=== PATIENT | female | born 1965 | race Caucasian/White ===

== ENCOUNTER 2016-09-05 17:46 | Observation (INO) | payer BC ==
[~2016-09-05] VITALS: Ht 170.2 cm; Wt 88.9 kg
[~2016-09-05 17:46] MED LIST: ADVIN25050 INH; CMD5 PO; ENOXAPARIN 40 MG/0.4 ML SYR SC SCH; FRC PO
[2016-09-05] MEDS ORDERED: ASPIRIN 324 MG CHEW PO STA (19:09)
[2016-09-05 19:25] LABS: BASO % 0.2 %; BASO ABS # 0.01 K/uL (0-0.2); COMPLETE YES; LYMPH % 34.4 %; LYMPH ABS # 2.17 K/uL (1.2-3.4); MEAN CELL VOLUME 84.8 fL (80-100); MEAN CORPUSCULAR HGB CONC 35.4 g/dl (32-36); MEAN PLATELET VOLUME 10.6 fL (7.4-10.4); MONO % 5.9 %; NEUT % 58.5 %; PLATELET COUNT 204 K/uL (130-400); WHITE BLOOD COUNT 6.31 K/uL (4.8-10.8)
[2016-09-05 19:37] LABS: BLOOD UREA NITROGEN 11 mg/dl (7-18); BUN/CREATININE RATIO 12.2 (10-20); CARBON DIOXIDE 29 mmol/L (21-32); CHLORIDE 105 mmol/L (98-107); CREATININE 0.86 mg/dl (0.60-1.20); GLUCOSE 95 mg/dl (70-99); POTASSIUM 3.7 mmol/L (3.5-5.1); SODIUM 140 mmol/L (136-145)
--- NOTE | 2016-09-05 19:40 | DIAGNOSTIC IMAGING REPORT ---
CHEST ONE VIEW PORTABLE CLINICAL HISTORY: Chest pain. COMPARISON STUDY: No previous studies for comparison. FINDINGS: Lung volumes are normal. Lungs are clear. There is no pneumothorax or pleural effusion. Pulmonary vascularity is normal. Cardiac size is normal. Mediastinal contours are normal. There is no evidence of pulmonary edema. IMPRESSION: No acute cardiopulmonary findings. Electronically signed by: Alejandro Craig M.D. 09/05/2016 7:39 PM Dictated Date/Time: 09/05/2016 7:38 PM
[2016-09-05 19:42] LABS: CKMB/CK RATIO 2.1 (0-3.0)
[2016-09-05] MEDS ORDERED: MELA1TAB3 PO (19:52)
[2016-09-05] MEDS ORDERED: IBUP-1050 PO (19:52)
[2016-09-05] MEDS ORDERED: PRLSR20 PO (19:52)
[2016-09-05] MEDS ORDERED: VNTHFA/IN INH (19:52)
[2016-09-05 21:19] VITALS: Ht 170.2 cm; Wt 88.9 kg
[2016-09-05] MEDS ORDERED: NITROGLYCERIN 0.4 MG SL PER TAB CHARGE SL PRN (21:30)
[2016-09-05] MEDS ORDERED: MAGNESIUM HYDROXIDE SUSP 30 ML UDC PO PRN (21:30)
[2016-09-05] MEDS ORDERED: ALBUTEROL HFA 8 GM INHALER INH PRN (21:30)
[2016-09-05] MEDS ORDERED: POLYETHYLENE (MIRALAX) 17 GM PACK PO PRN (21:30)
[2016-09-05] MEDS ORDERED: ACETAMINOPHEN 325 MG TAB PO PRN (21:30)
[2016-09-05] MEDS ORDERED: ONDANSETRON INJ 2 MG/ML 2 ML VIAL IV PRN (21:30)
[2016-09-05] MEDS ORDERED: MoRPHine SULFATE 2 MG/ML CARP IV PRN (21:30)
[2016-09-05] MEDS ORDERED: ALUMINUM/MAGNESIUM/SIMETH (MAALOX MAX) 30 ML UDC PO PRN (21:30)
[2016-09-05] MEDS ORDERED: IBUPROFEN 600 MG TAB PO PRN (21:30)
[2016-09-05] MEDS ORDERED: IV FLUIDS COMPLETED PRN (21:45)
--- NOTE | 2016-09-05 21:59 | History and Physical ---
History & Physical Date & Time of Service: Sep 05, 2016 at 21:35 Chief Complaint: Chest Pain Primary Care Physician: Mina Harden Jr,D.O. History of Present Illness Source: patient This is a 51 y/o F with a pmh of GERD, asthma who presents to the ED after having an episode where she felt like "she got the wind knocked out of her. " She as at work and walking down the hallway when this happened. She had no chest pain or shortness of breath. She did feel light headed and dizzy. She also did get flushed and felt that her hands were tingly. She reports having two similar episodes in the past year where she felt like she got winded. Currently she feels exhausted. Smoked for a few years in her teens Red wine a couple of times a week. Past Medical/Surgical History Medical Problems: (1) Acid reflux Status: Chronic Family History Hypertension Social History Smoking Status: Former Smoker Alcohol Use: occasionally Drug Use: none Marital Status: Housing status: lives with family Immunizations History of Influenza Vaccine: Yes History of Tetanus Vaccine?: Yes History of Pneumococcal: Unknown History of Hepatitis B Vaccine: Unknown Multi-Drug Resistant Organisms History of MDRO: No Allergies Coded Allergies: Cephalosporins (Verified Allergy, Mild, UNSURE, 07/08/09) Propoxyphene (Verified Allergy, Mild, UNSURE, 07/08/09) Naproxen (Verified Allergy, Unknown, UNSURE, ABLE TO TAKE IBUPROFEN, ) Tetracycline (Verified Allergy, Unknown, UNSURE, 09/06/15) Home Medications Scheduled Ibuprofen (Advil), 600 MG PO PRN UD Omeprazole (Prilosec), 20 MG PO DAILY Scheduled PRN Albuterol Hfa (Ventolin Hfa), 2 PUFFS INH Q6H PRN for SOB/Wheezing Melatonin-Pyridoxine (Melatonin), 2 MG PO HS PRN for Sleep Review of Systems Constitutional: No chills, No fever, No sweats ENT: No hearing loss Respiratory: No cough, No dyspnea at rest, No dyspnea on exertion, No shortness of breath, No sputum, No wheezing Cardiovascular: No PND, No chest pain, No claudication, No edema, No orthopnea Abdomen: No nausea, No pain, No vomiting Genitourinary - Female: No dysuria, No urinary frequency, No urinary urgency Endocrine: + fatigue Physical Exam Vital Signs Date Time Temp Pulse Resp B/P Pulse Ox O2 Delivery O2 Flow Rate FiO2 09/05/16 21:19 Room Air 09/05/16 21:02 71 09/05/16 21:01 71 22 138/98 99 Room Air 09/05/16 17:53 36.8 85 18 163/86 100 Room Air General Appearance: no apparent distress Eyes: normal inspection, PERRL, EOMI ENT: hearing grossly normal, pharynx normal Neck: supple, no adenopathy, thyroid normal Respiratory/Chest: lungs clear, normal breath sounds, no respiratory distress, no accessory muscle use Cardiovascular: regular rate, rhythm, no edema, no murmur, normal peripheral pulses Abdomen/GI: normal bowel sounds, non tender, soft Back: no CVA tenderness, normal range of motion Extremities/Musculoskelatal: normal inspection, no calf tenderness, no pedal edema, normal range of motion Neurologic/Psych: log peeler II-XII nml as tested, no motor/sensory deficits, alert, normal mood/affect, oriented x 3 Diagnostics Laboratory Results Results Past 24 Hours Test 09/05/16 18:10 Range/Units White Blood Count 6.31 4.8-10.8 K/uL Red Blood Count 4.60 4.2-5.4 M/uL Hemoglobin 13.8 12.0-16.0 g/dL Hematocrit 39.0 37-47 % Mean Corpuscular Volume 84.8 80-100 fL Mean Corpuscular Hemoglobin 30.0 25-34 pg Mean Corpuscular Hemoglobin Concent 35.4 32-36 g/dl Platelet Count 204 130-400 K/uL Mean Platelet Volume 10.6 7.4-10.4 fL Neutrophils (%) (Auto) 58.5 % Lymphocytes (%) (Auto) 34.4 % Monocytes (%) (Auto) 5.9 % Eosinophils (%) (Auto) 1.0 % Basophils (%) (Auto) 0.2 % Neutrophils # (Auto) 3.70 1.4-6.5 K/uL Lymphocytes # (Auto) 2.17 1.2-3.4 K/uL Monocytes # (Auto) 0.37 0.11-0.59 K/uL Eosinophils # (Auto) 0.06 0-0.5 K/uL Basophils # (Auto) 0.01 0-0.2 K/uL RDW Standard Deviation 37.3 36.4-46.3 fL RDW Coefficient of Variation 12.2 11.5-14.5 % Immature Granulocyte % (Auto) 0.0 % Immature Granulocyte # (Auto) 0.00 0.00-0.02 K/uL Sodium Level 140 136-145 mmol/L Potassium Level 3.7 3.5-5.1 mmol/L Chloride Level 105 98-107 mmol/L Carbon Dioxide Level 29 21-32 mmol/L Anion Gap 6.0 3-11 mmol/L Blood Urea Nitrogen 11 7-18 mg/dl Creatinine 0.86 0.60-1.20 mg/dl Est Creatinine Clear Calc Drug Dose 92.6 ml/min Estimated GFR () 91.3 Estimated GFR (Non- 78.8 BUN/Creatinine Ratio 12.2 10-20 Random Glucose 95 70-99 mg/dl Calcium Level 9.0 8.5-10.1 mg/dl Total Creatine Kinase 266 26-192 U/L Creatine Kinase MB 5.5 0.5-3.6 ng/ml Creatine Kinase MB Ratio 2.1 0-3.0 Troponin I < 0.015 0-0.045 ng/ml Impression Assessment and Plan This is a 51 y/ F who presents with s/sx concerning for ACS vs. Arrhythmias. We will do a chest pain rule out but ultimately will also need to rule out electrical conduction abnormalities. Chest pain rule out EKG with some ST depressions noted on the lateral leads Occasional PVC's noted on monitor Initial troponin negative, trend x 3 Review telemetry tomorrow Ordered a stress echo for tomorrow, NPO after midnight EKG tomorrow AM DVT proph Lovenox Gerd: Protonix code: Full Advanced Directives Existing Living Will: No Existing Power of Package Liner: No VTE Prophylaxis VTE Risk Assessment Done? Y/N: Yes Risk Level: Moderate Assessment and Plan Attending Addendum: I have physically seen and examined this patient, have directed their medical care, have supervised the medical residents activities, and agree with the H&P as noted above, with the following changes: NONE
[2016-09-05 22:30] VITALS: O2SAT 100
[2016-09-05 22:55] VITALS: BP 130/88; PULSE 67; TEMP 36.9; O2SAT 98
--- NOTE | 2016-09-06 01:07 | EMERGENCY ROOM VISIT NOTE ---
History Report prepared by aNga: Carleen De La Rosa Under the Supervision of: Dr. Nico Herrmann M.D. 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 The patient was at work and walking down the hallway talking with a co-worker when her symptoms suddenly began. She states that it suddenly felt like "all of the air got pushed out of my chest and it sent me into a coughing attack." The patient returned to her office and sat down. She began feeling dizzy and shaky, and her face became red. She states that she just didn't feel right. She is still complaining of feeling weak and tired. She states, "I think I just gave myself an anxiety attack." She has never had an anxiety attack before and does not have any personal history of anxiety. The patient denies any chest pain but states that after the incident she developed achy pain in her chest. She is also experiencing some nausea. She states over the last couple of weeks she has been feeling dizzy. The patient denies pain radiating into her arm or jaw. She denies pain or swelling in her legs and any personal history of blood clots. She does not take any estrogen. She has been taking melatonin over the past week and denies any other changes in her medications. 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 She denies pain or swelling in her legs and any personal history of blood clots. Review of Systems See HPI for pertinent positives & negatives. A total of 10 systems reviewed and were otherwise negative. Past Medical & Surgical Medical Problems: (1) Acid reflux (2) Chest pain Family History Hypertension Social History Smoking Status: Former Smoker Marital Status: Occupation Status: employed Current/Historical Medications Scheduled Ibuprofen (Advil), 600 MG PO PRN UD Omeprazole (Prilosec), 20 MG PO DAILY Scheduled PRN Albuterol Hfa (Ventolin Hfa), 2 PUFFS INH Q6H PRN for SOB/Wheezing Melatonin-Pyridoxine (Melatonin), 2 MG PO HS PRN for Sleep Allergies Coded Allergies: Cephalosporins (Verified Allergy, Mild, UNSURE, 07/08/09) Propoxyphene (Verified Allergy, Mild, UNSURE, 07/08/09) Naproxen (Verified Allergy, Unknown, UNSURE, ABLE TO TAKE IBUPROFEN, ) Tetracycline (Verified Allergy, Unknown, UNSURE, 09/06/15) Physical Exam Vital Signs Date Time Temp Pulse Resp B/P Pulse Ox O2 Delivery O2 Flow Rate FiO2 09/05/16 21:19 Room Air 09/05/16 21:02 71 09/05/16 21:01 71 22 138/98 99 Room Air 09/05/16 17:53 36.8 85 18 163/86 100 Room Air Physical Exam GENERAL: alert, sitting up in bed, anxious appearing, well nourished, no acute distress, non-toxic EYE EXAM: normal conjunctiva OROPHARYNX: no exudate, no erythema, lips, buccal mucosa, and tongue normal and mucous membranes are moist NECK: supple, no nuchal rigidity, no adenopathy, non-tender LUNGS: Clear to auscultation. Normal chest wall mechanics HEART: no murmurs, S1 normal and S2 normal ABDOMEN: abdomen soft, non-tender, normo-active bowel sounds, no masses, no rebound or guarding. BACK: Back is symmetrical on inspection and there is no deformity, no midline tenderness, no CVA tenderness. SKIN: no rashes and no bruising UPPER EXTREMITIES: upper extremities are grossly normal. Radial pulses equal bilaterally. LOWER EXTREMITIES: No pitting edema. NEURO EXAM: Normal sensorium, cranial nerves II-XII grossly intact, normal speech, no gross weakness of arms, no gross weakness of legs. Medical Decision & Procedures ER Provider Diagnostic Interpretation: Radiology results as stated below per my review and the radiologist's interpretation: CHEST ONE VIEW PORTABLE CLINICAL HISTORY: Chest pain. COMPARISON STUDY: No previous studies for comparison. FINDINGS: Lung volumes are normal. Lungs are clear. There is no pneumothorax or pleural effusion. Pulmonary vascularity is normal. Cardiac size is normal. Mediastinal contours are normal. There is no evidence of pulmonary edema. IMPRESSION: No acute cardiopulmonary findings. Electronically signed by: Alejandro Craig M.D. 09/05/2016 7:39 PM Dictated Date/Time: 09/05/2016 7:38 PM Laboratory Results 09/05/16 18:10 Red Blood Count 4.60, Mean Corpuscular Volume 84.8, Mean Corpuscular Hemoglobin 30.0, Mean Corpuscular Hemoglobin Concent 35.4, Mean Platelet Volume 10.6, Neutrophils (%) (Auto) 58.5, Lymphocytes (%) (Auto) 34.4, Monocytes (%) (Auto) 5.9, Eosinophils (%) (Auto) 1.0, Basophils (%) (Auto) 0.2, Neutrophils # (Auto) 3.70, Lymphocytes # (Auto) 2.17, Monocytes # (Auto) 0.37, Eosinophils # (Auto) 0.06, Basophils # (Auto) 0.01 09/05/16 18:10 Test 09/05/16 18:10 White Blood Count 6.31 K/uL (4.8-10.8) Red Blood Count 4.60 M/uL (4.2-5.4) Hemoglobin 13.8 g/dL (12.0-16.0) Hematocrit 39.0 % (37-47) Mean Corpuscular Volume 84.8 fL (80-100) Mean Corpuscular Hemoglobin 30.0 pg (25-34) Mean Corpuscular Hemoglobin Concent 35.4 g/dl (32-36) Platelet Count 204 K/uL (130-400) Mean Platelet Volume 10.6 fL (7.4-10.4) Neutrophils (%) (Auto) 58.5 % Lymphocytes (%) (Auto) 34.4 % Monocytes (%) (Auto) 5.9 % Eosinophils (%) (Auto) 1.0 % Basophils (%) (Auto) 0.2 % Neutrophils # (Auto) 3.70 K/uL (1.4-6.5) Lymphocytes # (Auto) 2.17 K/uL (1.2-3.4) Monocytes # (Auto) 0.37 K/uL (0.11-0.59) Eosinophils # (Auto) 0.06 K/uL (0-0.5) Basophils # (Auto) 0.01 K/uL (0-0.2) RDW Standard Deviation 37.3 fL (36.4-46.3) RDW Coefficient of Variation 12.2 % (11.5-14.5) Immature Granulocyte % (Auto) 0.0 % Immature Granulocyte # (Auto) 0.00 K/uL (0.00-0.02) Anion Gap 6.0 mmol/L (3-11) Est Creatinine Clear Calc Drug Dose 92.6 ml/min Estimated GFR () 91.3 Estimated GFR (Non- 78.8 BUN/Creatinine Ratio 12.2 (10-20) Calcium Level 9.0 mg/dl (8.5-10.1) Total Creatine Kinase 266 U/L (26-192) Creatine Kinase MB 5.5 ng/ml (0.5-3.6) Creatine Kinase MB Ratio 2.1 (0-3.0) Troponin I < 0.015 ng/ml (0-0.045) Laboratory results per my review. Medications Administered Medications (Trade) Dose Ordered Sig/Jennifer Route Start Time Stop Time Status Last Admin Dose Admin Aspirin (Aspirin Chew) 324 mg NOW STAT PO 09/05/16 19:09 09/05/16 19:10 DC 09/05/16 19:28 324 MG ECG Indication: SOB/dyspnea Rate (beats per minute): 96 Rhythm: normal sinus Findings: ST depression (Lateral), T-wave inversion (lead 3), other (normal axis) Comparison ECG Date: no prior available ED Course ED COURSE: Vital signs were reviewed and showed hypertensive. The patients medical record was reviewed The above diagnostic studies were performed and reviewed. ED treatments and interventions as stated above. 1846: The patient was evaluated in room B8. A complete history and physical examination was performed. 1908: Aspirin 324 mg PO 1951: I reassessed the patient and she is doing well. 2039: Upon reevaluation, the patient is resting comfortably. I discussed my findings with the patient and she understands and agrees with the treatment plan. Based on the patients age, coexisting illnesses, exam and lab findings the decision to treat as an inpatient was made. The patient remained stable while under my care. The patient will be evaluated for further management. 2047: I spoke with Dr. Iqbal. We discussed the patient's results and treatment plan. The patient will be evaluated by the [facility] for further management. Medical Decision Differential diagnoses includes but is not limited to pneumonia, bronchitis, COPD/Asthma exacerbation, pneumothorax, pulmonary embolism, congestive heart failure, acute coronary syndrome. Patient is a 51-year-old female who presents the ER for shortness of breath associated with an odd feeling in her chest. This occurred while walking. EKG shows slight ST depressions in the lateral leads. CBC was unremarkable. Troponin was negative. CK-MB was elevated slightly at 5.5. Patient was given aspirin but had no chest pain upon presentation to the ER. With EKG and being unable to find any old EKGs I recommended observation and she was agreeable. Her chest x-ray was unremarkable. Case was discussed with internal medicine she was observed. Consults Time Called: 2040 Consulting Physician: Dr. Iqbal Returned Call: [address] Iqbal. We discussed the patient's results and treatment plan. The patient will be evaluated by the [facility] for further management. Impression Primary Impression: Shortness of breath Additional Impressions: Precordial chest pain Abnormal ECG Scribe Attestation The scribe's documentation has been prepared under my direction and personally reviewed by me in its entirety. I confirm that the note above accurately reflects all work, treatment, procedures, and medical decision making performed by me. Departure Information Dispostion Being Evaluated By Hospitalist Referrals No Doctor, Assigned (PCP) Patient Instructions My [facility] Problem Qualifiers
[2016-09-06 02:45] VITALS: BP 111/66; PULSE 62; TEMP 36.7; O2SAT 99
[2016-09-06 04:14] LABS: PROTHROMBIN TIME (PATIENT) 10.6 SECONDS (9.0-12.0)
[2016-09-06 04:20] LABS: CHOLESTEROL 174 mg/dl (0-200); CHOLESTEROL/HDL RATIO 3.3; HDL CHOLESTEROL 52 mg/dl; LDL CHOLESTEROL CALCULATED 103 mg/dl; TRIGLYCERIDES 94 mg/dl (0-150); VERY LOW DENSITY LIPOPROT CALC 19 mg/dl
[2016-09-06 07:30] VITALS: BP 117/68; PULSE 66; TEMP 36.6; O2SAT 96
[2016-09-06] MEDS ORDERED: ENOXAPARIN 40 MG/0.4 ML SYR SC SCH (09:00)
[2016-09-06] MEDS ORDERED: PANTOprazole SOD 40 MG TAB PO SCH (09:00)
--- NOTE | 2016-09-06 10:46 | ECHOCARDIOGRAM REPORT ---
*NOTICE TO RECEIVING [employer]Y This information is strictly Confidential and protected under [place] law. [place] law prohibits you from making any further disclosure of this information unless further disclosure is expressly permitted by the written consent of the person to whom it pertains or is authorized by law. A general authorization for the release of medical or other information is not sufficient for this purpose. Hospital accepts no responsibility if the information is made available to any other person, INCLUDING THE PATIENT. Interpretation Summary * Name: MARY MEADE Study Date: 09/06/2016 06:46 AM BP: 111/66 mmHg * Patient Location: [facility] HR: 62 * : 1965 (M/d/yyyy) Gender: Female Height: 67 in * Age: 51 yrs Ethnicity: CA Weight: 209 lb * Ordering Physician: Deidre Rapp * Referring Physician: Self, Referred * Performed By: Clayton Loo RCS * * Reason For Study: Chest Pain * BSA: 2.1 m2 * -- Conclusions -- * 1. Normal left ventricular size and systolic function. EF 60-65%. No regional wall motion abnormalities. No left ventricular hypertrophy. No significant diastolic dysfunction. * 2. No significant valvular abnormalities. * 3. Normal estimated right ventricular systolic pressure; estimated RVSP 21 mmHg. * 4. No prior study available for comparison. Procedure Details * A complete two-dimensional transthoracic echocardiogram was performed (2D, M-mode, Doppler and color flow Doppler). Left Ventricle * Normal left ventricular size and systolic function. EF 60-65%. No regional wall motion abnormalities. No left ventricular hypertrophy. No significant diastolic dysfunction. Right Ventricle * The right ventricle is normal in size and function. * The right ventricular systolic function is normal as assessed by tricuspid annular plane systolic excursion (TAPSE) (normal >1.5 cm). Atria * The left atrial size is normal. * Right atrial size is normal. * There is no evidence of atrial septal defect, but resolution does not allow assessment for a patent foramen ovale. Mitral Valve * The mitral valve is normal in structure and function. * There is no mitral valve stenosis. * There is trace mitral regurgitation. Tricuspid Valve * The tricuspid valve is not well visualized, but is grossly normal. * There is no tricuspid stenosis. * There is trace tricuspid regurgitation. Aortic Valve * The aortic valve is normal in structure and function. * The aortic valve is trileaflet. * No hemodynamically significant valvular aortic stenosis. * No aortic regurgitation is present. Pulmonic Valve * The pulmonary valve is inadequately visualized, but the Doppler data is adequate for interpretation. * There is no pulmonic valvular stenosis. * There is no significant pulmonary regurgitation. Great Vessels * The aortic root is normal size. * Ascending aorta of normal dimension * Aortic arch of normal dimension. Pericardium/Pleural * There is no pericardial effusion. Great Vessels * Normal inferior vena cava size and collapsability with sniff indicates a normal right atrial pressure of 3 mmHg * Normal hepatic venous flow pattern. Mildly blunted pulmonary venous flow pattern. MMode 2D Measurements and Calculations IVSd 0.96 cm IVSs 1.1 cm LVIDd 4.1 cm LVIDs 2.6 cm LVPWd 0.77 cm LVPWs 1.1 cm IVS/LVPW 1.2 FS 37.7 % EDV(Teich) 75.5 ml ESV(Teich) 23.9 ml EF(Teich) 68.3 % EDV(cubed) 70.4 ml ESV(cubed) 17.0 ml EF(cubed) 75.9 % % IVS thick 15.6 % % LVPW thick 42.6 % LV mass(C)d 110.1 grams LV mass(C)dI 53.4 grams/m\S\2 LV mass(C)s 77.8 grams LV mass(C)sI 37.8 grams/m\S\2 CO(Teich) 3.2 l/min CI(Teich) 1.6 l/min/m\S\2 SV(Teich) 51.6 ml SI(Teich) 25.0 ml/m\S\2 CO(cubed) 3.4 l/min CI(cubed) 1.6 l/min/m\S\2 SV(cubed) 53.4 ml SI(cubed) 25.9 ml/m\S\2 Ao root diam 3.1 cm Ao root area 7.6 cm\S\2 ACS 1.6 cm LA dimension 3.2 cm asc Aorta Diam 2.6 cm LA/Ao 1.0 LVAd ap4 29.7 cm\S\2 LVLd ap4 8.6 cm EDV(MOD-sp4) 83.0 ml LVAs ap4 15.2 cm\S\2 LVLs ap4 7.5 cm ESV(MOD-sp4) 26.0 ml EF(MOD-sp4) 68.7 % LVAd ap2 27.7 cm\S\2 LVLd ap2 8.4 cm EDV(MOD-sp2) 76.0 ml LVAs ap2 16.4 cm\S\2 LVLs ap2 7.1 cm ESV(MOD-sp2) 32.0 ml EF(MOD-sp2) 57.9 % CO(MOD-sp4) 3.6 l/min CI(MOD-sp4) 1.7 l/min/m\S\2 SV(MOD-sp4) 57.0 ml SI(MOD-sp4) 27.7 ml/m\S\2 CO(MOD-sp2) 2.8 l/min CI(MOD-sp2) 1.3 l/min/m\S\2 SV(MOD-sp2) 44.0 ml SI(MOD-sp2) 21.4 ml/m\S\2 Doppler Measurements and Calculations MV E max batool 94.3 cm/sec MV A max batool 81.4 cm/sec MV E/A 1.2 MV P1/2t max batool 110.5 cm/sec MV P1/2t 68.2 msec MVA(P1/2t) 3.2 cm\S\2 MV dec slope 474.4 cm/sec\S\2 MV dec time 0.24 sec Ao V2 max 150.5 cm/sec Ao max PG 9.1 mmHg Ao max PG (full) 5.2 mmHg LV V1 max PG 3.9 mmHg LV V1 max 98.2 cm/sec MR max batool 529.9 cm/sec MR max PG 112.3 mmHg TV E max batool 64.2 cm/sec PA V2 max 75.6 cm/sec PA max PG 2.3 mmHg TR max batool 210.2 cm/sec RVSP(TR) 20.7 mmHg RAP systole 3.0 mmHg
[2016-09-06 12:18] VITALS: BP 123/75; PULSE 82; TEMP 36.7; O2SAT 95
--- NOTE | 2016-09-06 13:07 | EXERCISE STRESS ECHO ---
*NOTICE TO RECEIVING [employer]ENCY This information is strictly Confidential and protected under [place] law. [place] law prohibits you from making any further disclosure of this information unless further disclosure is expressly permitted by the written consent of the person to whom it pertains or is authorized by law. A general authorization for the release of medical or other information is not sufficient for this purpose. Hospital accepts no responsibility if the information is made available to any other person, INCLUDING THE PATIENT. Interpretation Summary * Name: MARY MEADE Study Date: 09/06/2016 09:52 AM BP: 121/79 mmHg * Patient Location: .[id number]\E202\S\1 HR: 65 * : 1965 (M/d/yyyy) Gender: Female Height: 67 in * Age: 51 yrs Ethnicity: CA Weight: 209 lb * Ordering Physician: Deidre Rapp * Referring Physician: Self, Referred * Performed By: Clayton Loo RCS * * Reason For Study: Chest Pain * BSA: 2.1 m2 * The exercise echocardiographic examination is normal without resting left ventricular wall motion abnormalities or inducible ischemia. * The stress ECG response was normal * No arrhythmia were noted with stress. * STRESS STUDY: Normal exercise stress echocardiogram. No echocardiographic or ECG evidence of myocardial ischemia having achieved heart rate adequate for diagnostic purposes. * -- Conclusions -- * No segmental left ventricular wall motion abnormalities are noted. Procedure Details * ECHOEX, CPT #78295 Left Ventricle * Left ventricular systolic function is normal. * No segmental left ventricular wall motion abnormalities are noted. * Resting wall motion: Normal. Stress wall motion: Appropriate increase in Left ventricular systolic function and decrease in cavity size. No stress induced segmental wall motion abnormalities. * The left ventricular ejection fraction increases normally with stress. The left ventricular end-systolic cavity size reduces post-stress (normal response). The left ventricular wall motion with stress is normal. Stress Parameters * Normal sinus rhythm, PVC, normal ST-T * The stress ECG response was normal * The stress portion of this study was personally supervised by the undersigned interpreting physician. * Rest heart rate was '65' BPM. * Rest blood pressure was '121/79' * Maximum heart rate achieved was 162 bpm. * Maximum heart rate was 95 % of maximum age-predicted heart rate. * Maximum blood pressure was '155/74' * Total exercise time was '9:00' * Maximum exercise MET level achieved was '10.1' METS * Maximum treadmill speed was '3.4' miles per hour. * Maximum treadmill elevation was '14'% grade. * Exercise was terminated due to 'fatigue after achieving target heart rate' * Normal blood pressure response to exercise.
--- NOTE | 2016-09-06 13:44 | Discharge Instructions ---
Discharge Instructions Date of Service Sep 06, 2016. Admission Reason for Admission: Chest Pain Discharge Discharge Diagnosis / Problem: Chest discomfort Discharge Goals Goal(s): Increase independence, Diagnostic testing, Therapeutic intervention Activity Recommendations Activity Limitations: resume your previous activity . Instructions / Follow-Up Instructions / Follow-Up You presented to the hospital with chest discomfort. All the lab works and stress Echo was performed and it was normal. Please follow up with your primary doctor in 2-3 weeks or earlier if needed. Current Hospital Diet Patient's current hospital diet: Regular Diet Discharge Diet Recommended Diet: Regular Diet Pending Studies Studies pending at discharge: no Laboratory Results Lipid Panel Test 09/06/16 03:40 Range/Units Triglycerides Level 94 0-150 mg/dl Cholesterol Level 174 0-200 mg/dl HDL Cholesterol 52 mg/dl Cholesterol/HDL Ratio 3.3 LDL Cholesterol, Calculated 103 mg/dl Medical Emergencies . Who to Call and When: Medical Emergencies: If at any time you feel your situation is an emergency, please call 911 immediately. . Non-Emergent Contact Non-Emergency issues call your: Primary Care Provider . . "Provider Documentation" section prepared by Mychal Falk. VTE Core Measure Inpt VTE Proph given/why not?: Enoxaparin (Lovenox)SQ
[2016-09-06 13:51] VITALS: BP 123/75; PULSE 82; TEMP 36.7; O2SAT 95
--- NOTE | 2016-09-06 18:22 | Discharge Summary ---
Discharge Summary Date of Service Sep 06, 2016. (Mychal Falk MD) Discharge Summary Admission Date: Sep 05, 2016 at 21:30 Discharge Date: Sep 06, 2016 Discharge Disposition: Home Principal Diagnosis: Chest discomfort secondary to asthma/GERD Immunizations: Have You Had Influenza Vaccine: Yes History of Tetanus Vaccine?: Yes History of Pneumococcal: Unknown History of Hepatitis B Vaccine: Unknown Procedures: Patient Name: MARY MEADE Unit Number: [id number] Dictated: 09/05/161937 Transcribed: 09/05/161937 JA Printed Date/Time: [~ rep prt dt]/[~ rep prt tm] [~ rep ct labl] - [~ rep ct ivnm] [facility] [place] [address] Dictated: 09/05/161937 Transcribed: 09/05/161937 JA Printed Date/Time: [~ rep prt dt]/[~ rep prt tm] [~ rep ct labl] - [~ rep ct ivnm] CHEST ONE VIEW PORTABLE CLINICAL HISTORY: Chest pain. COMPARISON STUDY: No previous studies for comparison. FINDINGS: Lung volumes are normal. Lungs are clear. There is no pneumothorax or pleural effusion. Pulmonary vascularity is normal. Cardiac size is normal. Mediastinal contours are normal. There is no evidence of pulmonary edema. IMPRESSION: No acute cardiopulmonary findings. Electronically signed by: Alejandro Craig M.D. 09/05/2016 7:39 PM Dictated Date/Time: 09/05/2016 7:38 PM The status of this report is Signed. Draft = Not yet reviewed or approved by Radiologist. Signed = Reviewed and approved by Radiologist. <AttendingPhy></AttendingPhy> <FamilyPhy>Mina Harden Jr,D.O.</FamilyPhy> < PrimaryPhy>Mina Harden Jr,D.O.</PrimaryPhy> <UnitNumber>[id number]</ UnitNumber> <VisitNumber>[id number]</VisitNumber> <PatientName>MARY MEADE </PatientName> <DateOfBirth>1965</DateOfBirth> <Location>[facility]</Location> <ServiceDate>09/05/16</ServiceDate> <MNE>ESINDI</MNE> <OrderingPhy>Jose R Kaiser DO</OrderingPhy> <OrderingPhyMNE>f rep ord dr olson</OrderingPhyMNE> < DictatingPhyMNE>f rep dict dr olson</DictatingPhyMNE> <CCListMNE>f rep ct mne</ CCListMNE> <AdmittingPhyMNE>f pt admit dr olson</AdmittingPhyMNE> <AttendingPhyMNE >f pt attend dr olson</AttendingPhyMNE> <ConsultingPhyMNE>f pt consult dr olson</ConsultingPhyMNE> <FamilyPhyMNE>f pt fam dr olson</FamilyPhyMNE> <OtherPhyMNE>f pt other dr olson</OtherPhyMNE> < PrimaryPhyMNE>f pt prim care dr olson</PrimaryPhyMNE> <ReferringPhyMNE>f pt referring dr olson</ReferringPhyMNE> *NOTICE TO RECEIVING [employer] This information is strictly Confidential and protected under [place] law. [place] law prohibits you from making any further disclosure of this information unless further disclosure is expressly permitted by the written consent of the person to whom it pertains or is authorized by law. A general authorization for the release of medical or other information is not sufficient for this purpose. Hospital accepts no responsibility if the information is made available to any other person, INCLUDING THE PATIENT. Interpretation Summary * Name: MARY MEADE Study Date: 09/06/2016 09:52 AM BP: 121/79 mmHg * Patient Location: 2E\\S\\E202\\S\\1 HR: 65 * : 1965 (M/d/yyyy) Gender: Female Height: 67 in * Age: 51 yrs Ethnicity: [place] Weight: 209 lb * Ordering Physician: Deidre Rapp * Referring Physician: Self, Referred * Performed By: Clayton Loo RCS * * Reason For Study: Chest Pain * BSA: 2.1 m2 * The exercise echocardiographic examination is normal without resting left ventricular wall motion abnormalities or inducible ischemia. * The stress ECG response was normal * No arrhythmia were noted with stress. * STRESS STUDY: Normal exercise stress echocardiogram. No echocardiographic or ECG evidence of myocardial ischemia having achieved heart rate adequate for diagnostic purposes. * -- Conclusions -- * No segmental left ventricular wall motion abnormalities are noted. Procedure Details * ECHOEX, CPT #63557 Left Ventricle * Left ventricular systolic function is normal. * No segmental left ventricular wall motion abnormalities are noted. * Resting wall motion: Normal. Stress wall motion: Appropriate increase in Left ventricular systolic function and decrease in cavity size. No stress induced segmental wall motion abnormalities. * The left ventricular ejection fraction increases normally with stress. The left ventricular end-systolic cavity size reduces post-stress (normal response) . The left ventricular wall motion with stress is normal. Stress Parameters * Normal sinus rhythm, PVC, normal ST-T * The stress ECG response was normal * The stress portion of this study was personally supervised by the undersigned interpreting physician. * Rest heart rate was '65' BPM. * Rest blood pressure was '121/79' * Maximum heart rate achieved was 162 bpm. * Maximum heart rate was 95 % of maximum age-predicted heart rate. * Maximum blood pressure was '155/74' * Total exercise time was '9:00' * Maximum exercise MET level achieved was '10.1' METS * Maximum treadmill speed was '3.4' miles per hour. * Maximum treadmill elevation was '14'% grade. * Exercise was terminated due to 'fatigue after achieving target heart rate' * Normal blood pressure response to exercise. Created: Initialized: 09/06/16; 1307 <Electronically signed by Deni Merida M.D.> Signed: 09/06/16 1736 Deni Merida M.D. The status of this report is Signed. Draft = Not yet reviewed or approved by Computer Engineering Technician. Signed = Reviewed and approved by Computer Engineering Technician. Interpretation Summary * Name: MARY MEADE Study Date: 09/06/2016 06:46 AM BP: 111/66 mmHg * Patient Location: E202 HR: 62 * : 1965 (M/d/yyyy) Gender: Female Height: 67 in * Age: 51 yrs Ethnicity: [place] Weight: 209 lb * Ordering Physician: Deidre Rapp * Referring Physician: Self, Referred * Performed By: Clayton Loo RCS * * Reason For Study: Chest Pain * BSA: 2.1 m2 * -- Conclusions -- * 1. Normal left ventricular size and systolic function. EF 60-65%. No regional wall motion abnormalities. No left ventricular hypertrophy. No significant diastolic dysfunction. * 2. No significant valvular abnormalities. * 3. Normal estimated right ventricular systolic pressure; estimated RVSP 21 mmHg. * 4. No prior study available for comparison. Procedure Details * A complete two-dimensional transthoracic echocardiogram was performed (2D, M-mode, Doppler and color flow Doppler). Left Ventricle * Normal left ventricular size and systolic function. EF 60-65%. No regional wall motion abnormalities. No left ventricular hypertrophy. No significant diastolic dysfunction. Right Ventricle * The right ventricle is normal in size and function. * The right ventricular systolic function is normal as assessed by tricuspid annular plane systolic excursion (TAPSE) (normal >1.5 cm). Atria * The left atrial size is normal. * Right atrial size is normal. * There is no evidence of atrial septal defect, but resolution does not allow assessment for a patent foramen ovale. Mitral Valve * The mitral valve is normal in structure and function. * There is no mitral valve stenosis. * There is trace mitral regurgitation. Tricuspid Valve * The tricuspid valve is not well visualized, but is grossly normal. * There is no tricuspid stenosis. * There is trace tricuspid regurgitation. Aortic Valve * The aortic valve is normal in structure and function. * The aortic valve is trileaflet. * No hemodynamically significant valvular aortic stenosis. * No aortic regurgitation is present. Pulmonic Valve * The pulmonary valve is inadequately visualized, but the Doppler data is adequate for interpretation. * There is no pulmonic valvular stenosis. * There is no significant pulmonary regurgitation. Great Vessels * The aortic root is normal size. * Ascending aorta of normal dimension * Aortic arch of normal dimension. Pericardium/Pleural * There is no pericardial effusion. Great Vessels * Normal inferior vena cava size and collapsability with sniff indicates a normal right atrial pressure of 3 mmHg * Normal hepatic venous flow pattern. Mildly blunted pulmonary venous flow pattern. MMode 2D Measurements and Calculations IVSd 0.96 cm IVSs 1.1 cm LVIDd 4.1 cm LVIDs 2.6 cm LVPWd 0.77 cm LVPWs 1.1 cm IVS/LVPW 1.2 FS 37.7 % EDV(Teich) 75.5 ml ESV(Teich) 23.9 ml EF(Teich) 68.3 % EDV(cubed) 70.4 ml ESV(cubed) 17.0 ml EF(cubed) 75.9 % % IVS thick 15.6 % % LVPW thick 42.6 % LV mass(C)d 110.1 grams LV mass(C)dI 53.4 grams/m\\S\\2 LV mass(C)s 77.8 grams LV mass(C)sI 37.8 grams/m\\S\\2 CO(Teich) 3.2 l/min CI(Teich) 1.6 l/min/m\\S\\2 SV(Teich) 51.6 ml SI(Teich) 25.0 ml/m\\S\\2 CO(cubed) 3.4 l/min CI(cubed) 1.6 l/min/m\\S\\2 SV(cubed) 53.4 ml SI(cubed) 25.9 ml/m\\S\\2 Ao root diam 3.1 cm Ao root area 7.6 cm\\S\\2 ACS 1.6 cm LA dimension 3.2 cm asc Aorta Diam 2.6 cm LA/Ao 1.0 LVAd ap4 29.7 cm\\S\\2 LVLd ap4 8.6 cm EDV(MOD-sp4) 83.0 ml LVAs ap4 15.2 cm\\S\\2 LVLs ap4 7.5 cm ESV(MOD-sp4) 26.0 ml EF(MOD-sp4) 68.7 % LVAd ap2 27.7 cm\\S\\2 LVLd ap2 8.4 cm EDV(MOD-sp2) 76.0 ml LVAs ap2 16.4 cm\\S\\2 LVLs ap2 7.1 cm ESV(MOD-sp2) 32.0 ml EF(MOD-sp2) 57.9 % CO(MOD-sp4) 3.6 l/min CI(MOD-sp4) 1.7 l/min/m\\S\\2 SV(MOD-sp4) 57.0 ml SI(MOD-sp4) 27.7 ml/m\\S\\2 CO(MOD-sp2) 2.8 l/min CI(MOD-sp2) 1.3 l/min/m\\S\\2 SV(MOD-sp2) 44.0 ml SI(MOD-sp2) 21.4 ml/m\\S\\2 Doppler Measurements and Calculations MV E max batool 94.3 cm/sec MV A max batool 81.4 cm/sec MV E/A 1.2 MV P1/2t max batool 110.5 cm/sec MV P1/2t 68.2 msec MVA(P1/2t) 3.2 cm\\S\\2 MV dec slope 474.4 cm/sec\\S\\2 MV dec time 0.24 sec Ao V2 max 150.5 cm/sec Ao max PG 9.1 mmHg Ao max PG (full) 5.2 mmHg LV V1 max PG 3.9 mmHg LV V1 max 98.2 cm/sec MR max batool 529.9 cm/sec MR max PG 112.3 mmHg TV E max batool 64.2 cm/sec PA V2 max 75.6 cm/sec PA max PG 2.3 mmHg TR max batool 210.2 cm/sec RVSP(TR) 20.7 mmHg RAP systole 3.0 mmHg (Mychal Falk MD) Medication Reconciliation Continued Medications: Albuterol Hfa (Ventolin Hfa) 200 Puffs/12003 Mcg Aers 2 PUFFS INH Q6H PRN for SOB/Wheezing, #1 INHALER Ibuprofen (Advil) 200 Mg Tab 600 MG PO PRN UD, TAB Melatonin-Pyridoxine (Melatonin) 1 Tab Tab 2 MG PO HS PRN for Sleep Omeprazole (Prilosec) 20 Mg Capcr 20 MG PO DAILY, CAP Discharge Exam Patient was seen at the bedside. She states that she is feeling better. Denies any chest pain or SOB. No known family hx of heart disease or sudden . She states that she is pretty healthy otherwise. Review of Systems: Constitutional: No chills, No fever Respiratory: No cough, No dyspnea at rest, No dyspnea on exertion, No shortness of breath, No sputum, No wheezing Cardiovascular: No chest pain, No edema Abdomen: No constipation, No diarrhea, No nausea, No pain, No vomiting Musculoskeletal: No calf pain, No muscle pain Genitourinary - Female: No dysuria Integumentary: No rash Physical Exam: General Appearance: WD/WN, no apparent distress Neck: supple, trachea midline Respiratory/Chest: chest non-tender, lungs clear, normal breath sounds, no respiratory distress, no accessory muscle use Cardiovascular: regular rate, rhythm, no edema, normal peripheral pulses Abdomen / GI: normal bowel sounds, non tender, soft Extremities: no calf tenderness, no pedal edema, non-tender Neurologic/Psychiatric: alert, normal mood/affect, oriented x 3 Skin: normal color, warm/dry, no rash (Mychal Falk MD) Review of Systems: Constitutional: No fever Respiratory: No shortness of breath Cardiovascular: No chest pain Abdomen: + problem reported (gerd), No pain Physical Exam: General Appearance: no apparent distress Respiratory/Chest: lungs clear, no respiratory distress Cardiovascular: regular rate, rhythm Abdomen / GI: normal bowel sounds, non tender, soft Neurologic/Psychiatric: alert, oriented x 3 (Estefany Rodriguez M.D.) Hospital Course This is a 51 y/o female with PMHx of asthma and GERD presented to the ED after having an episode where she felt like "all the air was sucked out of her". She was walking down on the hallway when this happened. It lasted for less than 1 minute. During that time she also had an episode of coughing spell. She felt lightheaded and dizzy afterward. Reported to have 2 similar episodes last year. In ED EKG showed sinus rhythm with non specific abnormalities on the lateral leads. Patient was admitted for chest pain rule out. CBC, electrolytes, lipid profile and troponin were WNL. CK-mb and creatinine kinase were elevated. Patient was observed overnight in Tele. No acute event happened. She was on sinus rhythm with heart rate in 70s. EKG in the morning was normal. Stress echo was performed and it was normal. Her symptoms could be 2/2 asthma or GERD. The etiology is very less likely Cardiac given all the tests were negative. Patient was stable to be discharged. Total Time Spent: Greater than 30 minutes This includes examination of the patient, discharge planning, medication reconciliation, and communication with other providers. (Mychal Falk MD) I have reviewed the medical record and performed a history and physical examination of this patient today. I have discussed the case with Dr. Falk. The above note reflects my findings, conclusions, and recommendations. Total Time Spent: Greater than 30 minutes (35) (Estefany Rodriguez M.D.) Discharge Instructions Please refer to the electronic Patient Visit Report (Discharge Instructions) for additional information. (Mychal Falk MD) Additional Copies To Mina Harden Jr,D.O.
[2016-12-13] MEDS ORDERED: RANITIDINE PO (11:30)
== END 2016-09-06 14:08 | disposition home or self-care (01) ==
LOC: ENRESERVTM → ENRESERVDT → C.EDB 17:48 → C.2E 21:30
PROVIDERS: ADMIT Hospitalist; ATTEND Family Medicine
DX: R07.2 Precordial pain (principal); R06.02 Shortness of breath; R94.31 Abnormal electrocardiogram [ECG] [EKG]; J45.909 Unspecified asthma, uncomplicated; K21.9 Gastro-esophageal reflux disease without esophagitis; Z87.891 Personal history of nicotine dependence; Z82.49 Family history of ischemic heart disease and other diseases of the circulatory system

== ENCOUNTER → 2016-12-25 | Day surgery (SDC) | payer BC ==
[2016-12-13 11:30] VITALS: Ht 170.2 cm; Wt 86.4 kg
[~2016-12-25] VITALS: Ht 170.2 cm; Wt 86.4 kg
[~2016-12-25] MED LIST changes: -ADVIN25050 INH; -CMD5 PO; -ENOXAPARIN 40 MG/0.4 ML SYR SC SCH; -FRC PO; +IBUP-1050 PO; +LIDOCAINE HCL 2% 2 ML VIAL (20MG/ML) ONE; +PROPOFOL IV EMULSION 10 MG/ML 20 ML VIAL IV ONE; +RANITIDINE PO; +SODIUM CHLORIDE 0.9% 500ML 500 ML IV ONE; +VNTHFA/IN INH
--- NOTE | 2016-12-25 10:08 | Endo History and Physical ---
History & Physical Date of Service: Dec 25, 2016. Chief Complaint: screening Referring Physician: Dr. Marni Miller History of Present Illness 51 yo CF who presents for screening colonoscopy. Past Surgical History Hx Cardiac Surgery: No Hx Internal Defibrillator: No Hx Pacemaker: No Hx Abdominal Surgery: Yes (TUBAL LIGATION) Hx of Implantable Prosthesis: No Hx Post-Op Nausea and Vomiting: No Hx Cancer Surgery: No Hx Thoracic Surgery: No Hx Orthopedic: No Hx Urinary Tract Surgery: No Family History None Social History Smoking Status: Former Smoker Hx Substance Use: No Hx Alcohol Use: Yes (3 DRINKS ON WEEKENDS) Allergies Coded Allergies: Cephalosporins (Verified Allergy, Mild, ITCHING, 12/13/16) Propoxyphene (Verified Allergy, Mild, ITCHING, 12/13/16) Naproxen (Verified Allergy, Unknown, ITCHING, 12/13/16) Tetracycline (Verified Allergy, Unknown, ITCHING, 12/13/16) Current Medications Reported Home Medications Medications Dose Route/Sig Max Daily Dose Days Date Category [Ranitidine] 1 Tab PO BID 12/13/16 Reported Ventolin Hfa (Albuterol) 200 Puffs/86371 Mcg Aers 2 Puffs INH Q6H PRN 09/05/16 Reported Advil (Ibuprofen) 200 Mg Tab 600 Mg PO PRN UD 09/05/16 Reported Vital Signs Weight (Kilograms): 86.36 Height (Feet): 5 Height (Inches): 7 Date Time Temp Pulse Resp B/P (MAP) Pulse Ox O2 Delivery O2 Flow Rate FiO2 12/25/16 09:31 36.4 64 18 117/73 (88) 100 Room Air Physical Exam General Appearance: WD/WN, no apparent distress Respiratory/Chest: Auscultation: breath sounds normal Cardiovascular: Heart Auscultation: RRR Abdomen: Bowel Sounds: normal Inspection & Palpation: soft, non-distended, no tenderness, guarding & rebound Assessment and Plan Assessment: 51 yo CF who presents for screening colonoscopy. Plan: Proceed with colonoscopy.
--- NOTE | 2016-12-25 10:25 | Discharge Instructions ---
Endoscopy Patient Instructions Date / Procedure(s) Performed Dec 25, 2016. Colonoscopy Allergy Information Coded Allergies: Cephalosporins (Verified Allergy, Mild, ITCHING, 12/13/16) Propoxyphene (Verified Allergy, Mild, ITCHING, 12/13/16) Naproxen (Verified Allergy, Unknown, ITCHING, 12/13/16) Tetracycline (Verified Allergy, Unknown, ITCHING, 12/13/16) Discharge Date / Findings Dec 25, 2016. Colon polyp Medication Instructions OK to resume all medications today as prescribed Reported Home Medications Medications Dose Route/Sig Max Daily Dose Days Date Category [Ranitidine] 1 Tab PO BID 12/13/16 Reported Ventolin Hfa (Albuterol) 200 Puffs/33496 Mcg Aers 2 Puffs INH Q6H PRN 09/05/16 Reported Advil (Ibuprofen) 200 Mg Tab 600 Mg PO PRN UD 09/05/16 Reported Provider Instructions Activity Restrictions - No exercising or heavy lifting for 24 hours. - Do not drink alcohol the day of the procedure. - Do not drive a car or operate machinery until the day after the procedure. - Do not make any important decisions or sign important papers in 24 hours after the procedure. Following Day: - Return to full activity which may include returning to work/school. Diet Start your diet with liquids and light foods (jello, soup, juice, toast). Then eat your usual diet if not nauseated. Treatment For Common After Affects For mild abdominal pain, bloating, or excessive gas: - Rest - Eat lightly - Lie on right side Follow-Up Information Follow-up with Dr. Marni Miller as scheduled Anesthesia Information What You Should Know You have had a procedure that required some medicine to reduce anxiety and discomfort. This treatment is called moderate sedation. After receiving the treatment, you may be sleepy, but you will be able to breathe on your own. The effects of the treatment may last for several hours. Follow these instructions along with Activity/Diet recommendations noted above: * Do NOT do anything where dizziness or clumsiness would be dangerous. * Rest quietly at home today, then you can be up and about tomorrow. * Have a responsible person stay with you the rest of today. * You may have had an I.V. today. If so, you may take the dressing off later today. Recommendations Call your doctor if: * Trouble breathing * Continuous vomiting for more than 24 hours * Temperature above 101 degrees * Severe abdominal pain or bloating * Pain not relieved by pain medicine ordered * There is increased drainage or redness from any incision * A large amount of rectal bleeding greater than 2-3 tablespoons. (If you had a polyp/s removed or have hemorrhoids, a small amount of blood - from the rectum is to be expected.) * You have any unanswered questions or concerns. IN THE EVENT OF A SERIOUS EMERGENCY, GO TO THE NEAREST EMERGENCY ROOM Your discharge instructions were prepared by provider Zach Cline. Patient Instructions Signature Page Peyton Ochoa Patient (or Guardian) Signature/Date: I have read and understand the instructions given to me by my caregivers. Caregiver/RN/Doctor Signature/Date: The above-named patient and/or guardian has received patient instructions on this date. + Original Patient Signature Page (only) stays with chart. Please make copy for patient.
--- NOTE | 2016-12-25 10:35 | GI REPORT ---
Procedure Date: 12/25/2016 9:57 AM Procedure: Colonoscopy Indications: Screening for colorectal malignant neoplasm Medicines: Monitored Anesthesia Care Complications: No immediate complications. Estimated Blood Loss: Estimated blood loss: none. Procedure: Pre-Anesthesia Assessment: - Prior to the procedure, a History and Physical was performed, and patient medications and allergies were reviewed. The patient's tolerance of previous anesthesia was also reviewed. The risks and benefits of the procedure and the sedation options and risks were discussed with the patient. All questions were answered, and informed consent was obtained. Prior Anticoagulants: The patient has taken no previous anticoagulant or antiplatelet agents. ASA Grade Assessment: II - A patient with mild systemic disease. After reviewing the risks and benefits, the patient was deemed in satisfactory condition to undergo the procedure. After I obtained informed consent, the scope was passed under direct vision. Throughout the procedure, the patient's blood pressure, pulse, and oxygen saturations were monitored continuously. The Scope was introduced through the anus and advanced to the terminal ileum. The colonoscopy was performed without difficulty. The patient tolerated the procedure well. The quality of the bowel preparation was good. The terminal ileum, ileocecal valve, appendiceal orifice, and rectum were photographed. Findings: A 5 mm polyp was found in the sigmoid colon. The polyp was sessile. The polyp was removed with a hot snare. Resection and retrieval were complete. Impression: - One 5 mm polyp in the sigmoid colon, removed with a hot snare. Resected and retrieved. Recommendation: - Resume previous diet. - Continue present medications. - Repeat colonoscopy for surveillance based on pathology results. - Return to primary care physician as previously scheduled. Zach Cline, DO 12/25/2016 10:34:52 AM This report has been signed electronically. Note Initiated On: 12/25/2016 9:57 AM I attest to the content of the Intraoperative Record and orders documented therein, exceptions below
[2016-12-25 10:50] VITALS: BP 141/79; PULSE 58; O2SAT 99
--- NOTE | 2016-12-25 11:01 | Anesthesiology Progress Note ---
Anesthesia Post Op Note Date & Time Dec 25, 2016 at 11:01 Vital Signs Pain Intensity: 0 Vital Signs Past 12 Hours Date Time Temp Pulse Resp B/P (MAP) Pulse Ox O2 Delivery O2 Flow Rate FiO2 12/25/16 10:50 58 18 141/79 (99) 99 Room Air 12/25/16 10:41 62 18 128/86 (100) 100 Room Air 12/25/16 10:30 36.4 61 16 103/70 (81) 99 Room Air 12/25/16 09:31 36.4 64 18 117/73 (88) 100 Room Air Notes Mental Status: alert / awake / arousable, participated in evaluation Pt Amnestic to Procedure: Yes Nausea / Vomiting: adequately controlled Pain: adequately controlled Airway Patency, RR, SpO2: stable & adequate BP & HR: stable & adequate Hydration State: stable & adequate Anesthetic Complications: no major complications apparent
== END | disposition home or self-care (01) ==
LOC: C.GI 09:09
PROVIDERS: ATTEND Internal Medicine
DX: Z12.11 Encounter for screening for malignant neoplasm of colon (principal); D12.5 Benign neoplasm of sigmoid colon; Z98.51 Tubal ligation status; Z87.891 Personal history of nicotine dependence; Z90.89 Acquired absence of other organs; J45.909 Unspecified asthma, uncomplicated; K21.9 Gastro-esophageal reflux disease without esophagitis

== ENCOUNTER → 2017-01-29 | Outpatient (CLI) | payer BC ==
[~2017-01-29] MED LIST changes: -LIDOCAINE HCL 2% 2 ML VIAL (20MG/ML) ONE; -PROPOFOL IV EMULSION 10 MG/ML 20 ML VIAL IV ONE; -SODIUM CHLORIDE 0.9% 500ML 500 ML IV ONE
--- NOTE | 2017-01-30 07:56 | MAMMOGRAPHY REPORT ---
BILATERAL DIGITAL SCREENING MAMMOGRAM TOMOSYNTHESIS WITH CAD: 01/29/2017 CLINICAL HISTORY: Routine screening. Patient has no complaints. TECHNIQUE: Breast tomosynthesis in addition to standard 2D mammography was performed. Current study was also evaluated with a Computer Aided Detection (CAD) system. COMPARISON: Comparison is made to exams dated: 12/30/2015 mammogram, 12/08/2014 mammogram, 12/07/2013 [facility] mogram, 12/05/2012 mammogram, 09/12/2011 mammogram, and 08/16/2010 mammogram - [facility] er. BREAST COMPOSITION: There are scattered areas of fibroglandular density in both breasts. FINDINGS: The parenchymal pattern is unchanged. No developing mass, architectural distortion or clus ter of suspicious microcalcifications is seen in either breast. IMPRESSION: ACR BI-RADS CATEGORY 2: BENIGN There is no mammographic evidence of malignancy. A 1 year screening mammogram is recommended. The pa tient will receive written notification of the results. Approximately 10% of breast cancers are not detected with mammography. A negative mammographic report should not delay biopsy if a clinically suggestive mass is present. Marily Hardy M.D. ay/:01/29/2017 17:56:53 Linen Room Attendant: Saritha GALARZA(Lissy)(Koby)(BD), [facility] letter sent: Normal 1/2 BI-RADS Code: ACR BI-RADS Category 2: Benign
== END | disposition home or self-care (01) ==
LOC: C.MAMM 11:47
DX: Z12.31 Encounter for screening mammogram for malignant neoplasm of breast (principal)

== ENCOUNTER → 2017-01-31 | Outpatient (CLI) | payer BC ==
--- NOTE | 2017-01-31 13:01 | DIAGNOSTIC IMAGING REPORT ---
RIGHT HAND MIN 3 VIEWS ROUTINE CLINICAL HISTORY: Bony prominence the level of the third proximal interphalangeal joint COMPARISON: None. DISCUSSION: No fractures or dislocations are visualized. There is a tiny nonspecific 1.4 mm cortical expansile lucency involving the dorsal head of what is likely the third metacarpal. This is only visualized in the lateral view. IMPRESSION: 1. No acute fractures 2. Tiny nonspecific 1.4 mm expansile cortical lucency involving the dorsal head of what is likely the third metacarpal Electronically signed by: Mahad Pleitez M.D. 01/31/2017 1:00 PM Dictated Date/Time: 01/31/2017 12:58 PM
== END | disposition home or self-care (01) ==
LOC: C.RAD 12:19
DX: M25.841 Other specified joint disorders, right hand (principal)

== ENCOUNTER → 2017-06-17 | Outpatient (CLI) | payer OTHER | END | disposition home or self-care (01) | LOC: C.PAPS 09:44 | PROVIDERS: ATTEND Obstetrics & Gynecology | DX: Z01.419 Encounter for gynecological examination (general) (routine) without abnormal findings (principal) ==